=== PATIENT | male | born 1970 ===

== ENCOUNTER → 2017-10-02 | Outpatient (REF) | payer OTHER, MEDICAID ==
[2017-10-07 00:06] LABS: BENZODIAZEPINES, URINE SCREEN Negative ng/mL (Cutoff=200); METHADONE, URINE SCREEN Negative ng/mL (Cutoff=300); URINE NORBUPRENORPHINE Positive (.); URINE NORBUPRENORPHINE CONFIRM 452 ng/mL (Cutoff=10)
== END ==
LOC: M LAB REF 12:15
PROVIDERS: ATTEND Family Medicine Addiction Medicine
DX: M96.1 Postlaminectomy syndrome, not elsewhere classified (principal); F11.21 Opioid dependence, in remission